=== PATIENT | female | born 1990 | race Caucasian/White ===

== ENCOUNTER 2021-03-15 06:06 | Inpatient (IN) | payer MEDICAID ==
[2021-03-15] VITALS (31 sets, daily range): BP systolic 107–142; BP diastolic 64–98; PULSE 68–94; TEMP 97.9–98.9
[~2021-03-15] VITALS: Ht 165.1 cm; Wt 72.7 kg
[~2021-03-15 06:06] MED LIST: AUGMENTIN 875 M1 TAB PO; CONCERTA18 MG PO; DUREZOL 5 ML5 ML OU; ESCITALOPRAM; IBU600 MG PO; PERCOCET 325 MG1 TA2 PO; PRENATAL; RETIN-A 0.01% GEL15
--- NOTE | 2021-03-15 06:10 | NUR ---
Patient arrives ambulatory with spouse for scheduled induction of labor. Patient reports occasional contractions, denies ROM or vaginal bleeding and reports normal movement. Reviewed plan of care for induction, questions answered and further questions denied. Patient agrees to plan of care, changes into gown. EFM explained and placed. VS obtained. 0625- IV started in LH, labs obtained. LR infusing per protocol. Consents explained and signed. Denies questions. Assessment completed. 0650- Reviewed Pitocin administration, patient agrees to plan of care and denies questions. Pitocin started at 2 mU per protocol and order.
[2021-03-15 07:13] LABS: BASO % 0.4 % (0.0-2.0); EOS # 0.1 (0.0-0.7); EOS % 0.8 % (0-4.0); GRAN # 4.8 (1.4-6.5); GRAN % 63.8 % (42.2-75.2); HEMOGLOBIN 11.1 g/dl (12.5-16.0); LYMPH # 2.1 (1.2-3.4); LYMPH % 27.7 % (20.0-51.0); MEAN CELL VOLUME 86 fl (80.0-100.0); MEAN CORPUSCULAR HEMOGLOBIN 28 pg (27.0-31.0); MEAN CORPUSCULAR HGB CONC 33 g/dl (33.0-37.0); MEAN PLATELET VOLUME 12.4 fl (7.4-10.4); MONO # 0.5 (0.1-0.6); MONO % 6.6 % (1.7-9.3); PLATELET COUNT 214 K/mm3 (130-400); RED BLOOD COUNT 3.92 M/mm3 (4.10-5.30); REDCELL DISTRIBUTION WIDTH-CV 13.4 % (11.5-14.5)
[2021-03-15 07:14] LABS: HEMATOCRIT 33.5 % (37.0-47.0)
--- NOTE | 2021-03-15 09:53 | NUR ---
Patient has fully completed COVID19 vaccination protocol and does not need swab.
--- NOTE | 2021-03-15 10:12 | NUR ---
Patient repositioned LL following epidural, updated on plan of care and safety. RN at bedside palpating abdomen and adjusting toco.
--- NOTE | 2021-03-15 12:25 | NUR ---
Patient reports increased pressure. SVE 10/+3. Dr. Méndez notified and requested at bedside for impending delivery. In transit. RN remains at bedside.
--- NOTE | 2021-03-15 12:42 | NUR ---
1242- Dr. Méndez at bedside. Patient prepped for impending delivery, assisted to foot plates. Reports urge to push. Avelar catheter removed prior to pushing. 1245- Patient begins pushing with contractions with physician and RN at bedside. Moves vertex well. Nursery RN to bedside. 1253- of viable male attended by Dr. Méndez. to mothers abdomen, care of infant to Francesca Li RN. Apgars 8/9/10. 1255- Spon delivery of placenta. Pitocin bolus started at 333 ml/hr/protocol. Bilateral labial lacerations repaired by Dr. Méndez, patient tolerates well. Pericare given and ice pack applied. Fundal massage by RN, firm down 1. Patient updated on plan of care and safety reviewed.
[2021-03-16 03:45] VITALS: BP 110/77; PULSE 86; TEMP 97.8
[2021-03-16 06:58] VITALS: BP 122/72; PULSE 78; TEMP 98.2
--- NOTE | 2021-03-16 10:11 | NUR ---
Initial visit attempt; Nurse with patient, Photocopy Operator left card of congratulations and God's blessings for the of their son.
[2021-03-16 11:56] VITALS: BP 123/71; PULSE 98; TEMP 98.9
[2021-03-16 15:56] VITALS: BP 112/81; PULSE 99; TEMP 97.8
[2021-03-16 19:25] VITALS: BP 121/72; PULSE 93; TEMP 97.7
[2021-03-17 07:40] VITALS: BP 116/71; PULSE 80; TEMP 97.8
[2021-03-17] MEDS ORDERED: MOTRIN 800800 MG/TAB PO (08:19)
[2021-03-17] MEDS ORDERED: PERCOCET 325 MG1 TA2 PO (08:19)
== END 2021-03-17 09:30 | disposition home or self-care (01) | DRG 807 ==
LOC: LDR 06:06 → OB 06:06 → LDR 13:29 → OB 15:33
PROVIDERS: ADMIT Obstetrics & Gynecology
PROC: 10E0XZZ Delivery of Products of Conception, External Approach (ICD-10-PCS; principal; 2021-03-15)
PROC: 0UQMXZZ Repair Vulva, External Approach (ICD-10-PCS; 2021-03-15)
PROC: 10907ZC Drainage of Amniotic Fluid, Therapeutic from Products of Conception, Via Natural or Artificial Opening (ICD-10-PCS; 2021-03-15)
DX: O48.0 Post-term pregnancy (principal); Z37.0 Single live birth; Z3A.40 40 weeks gestation of pregnancy; O70.0 First degree perineal laceration during delivery
CPT/HCPCS: J2590; J7120